=== PATIENT | female | born 1990 | race American Indian/Alaskan Native ===

== ENCOUNTER 2019-07-10 07:03 | Emergency (ER) | payer OTHER ==
--- NOTE | 2019-07-10 11:07 | Emergency Department Report ---
ED ENT HPI - General Chief complaint: Sore Throat Stated complaint: SORE THROAT COUGH SWEATING Time Seen by Provider: 07/10/19 09:04 Source: patient Mode of arrival: Ambulatory Limitations: No Limitations - History of Present Illness Initial comments: This is a 29-year-old female who presents to the emergency room with sore throat and cough for 4 days. Patient currently taking TheraFlu with minimal improvement of symptoms. Reports cough is nonproductive. States multiple family members with similar symptoms. Denies nausea, vomiting, diarrhea, myalgia, shortness of breath, chest pain, palpitations, or wheezing. MD complaint: sore throat Onset/Timin -: days(s) Location: throat Severity: moderate Severity scale (0 -10): 5 Quality: aching Consistency: intermittent Improves with: none Worsens with: swallowing, eating Associated Symptoms: cough, pain with swallowing, sore throat, rhinorrhea. denies: fever, discharge from ear - Related Data Previous Rx's Medication Instructions Recorded Last Taken Type Benzonatate [Tessalon Perles] 100 mg PO Q8HR PRN #30 capsule 07/10/19 Unknown Rx Fluticasone [Flonase] 1 spray NS QDAY #1 bottle 07/10/19 Unknown Rx methylPREDNISolone [Medrol 4MG 4 mg PO DAILY #1 tab.ds.pk 07/10/19 Unknown Rx DOSEPAK (21 tabs)] Allergies Allergy/AdvReac Type Severity Reaction Status Date / Time No Known Allergies Allergy Verified 07/10/19 07:07 ED Dental HPI - General Chief complaint: Sore Throat Stated complaint: SORE THROAT COUGH SWEATING Time Seen by Provider: 07/10/19 09:04 Source: patient Mode of arrival: Ambulatory Limitations: No Limitations - Related Data Previous Rx's Medication Instructions Recorded Last Taken Type Benzonatate [Tessalon Perles] 100 mg PO Q8HR PRN #30 capsule 07/10/19 Unknown Rx Fluticasone [Flonase] 1 spray NS QDAY #1 bottle 07/10/19 Unknown Rx methylPREDNISolone [Medrol 4MG 4 mg PO DAILY #1 tab.ds.pk 07/10/19 Unknown Rx DOSEPAK (21 tabs)] Allergies Allergy/AdvReac Type Severity Reaction Status Date / Time No Known Allergies Allergy Verified 07/10/19 07:07 ED Review of Systems ROS: Stated complaint: SORE THROAT COUGH SWEATING Other details as noted in HPI Constitutional: denies: chills, fever ENT: throat pain, congestion. denies: ear pain Respiratory: cough. denies: shortness of breath, wheezing Cardiovascular: denies: chest pain, palpitations Gastrointestinal: denies: abdominal pain, nausea, diarrhea Musculoskeletal: denies: back pain, joint swelling, arthralgia Skin: denies: rash, lesions Neurological: denies: headache, weakness, paresthesias Psychiatric: denies: anxiety, depression ED Past Medical Hx - Social History Smoking Status: Never Smoker - Medications Home Medications: Home Medications Medication Instructions Recorded Confirmed Last Taken Type Benzonatate [Tessalon Perles] 100 mg PO Q8HR PRN #30 capsule 07/10/19 Unknown Rx Fluticasone [Flonase] 1 spray NS QDAY #1 bottle 07/10/19 Unknown Rx methylPREDNISolone [Medrol 4MG 4 mg PO DAILY #1 tab.ds.pk 07/10/19 Unknown Rx DOSEPAK (21 tabs)] ED Physical Exam - General Limitations: No Limitations General appearance: alert, in no apparent distress, obese - ENT ENT exam: Present: mucous membranes moist, TM's normal bilaterally, normal external ear exam. Absent: normal orophraynx (erythematous and enlarged tonsils without exudate, uvula midline) - Neck Neck exam: Present: normal inspection - Respiratory Respiratory exam: Present: normal lung sounds bilaterally. Absent: respiratory distress - Cardiovascular Cardiovascular Exam: Present: regular rate, normal rhythm. Absent: systolic murmur, diastolic murmur, rubs, gallop - GI/Abdominal GI/Abdominal exam: Present: soft, normal bowel sounds. Absent: distended, tenderness, guarding, rebound, rigid - Neurological Exam Neurological exam: Present: alert, oriented X3, normal gait - Psychiatric Psychiatric exam: Present: normal affect, normal mood - Skin Skin exam: Present: warm, dry, intact, normal color. Absent: rash ED Course Vital Signs 07/10/19 07/10/19 08:10 08:16 Temperature 98.2 F Pulse Rate 68 Respiratory 20 16 Rate Blood Pressure 115/61 O2 Sat by Pulse 98 Oximetry ED Medical Decision Making - Lab Data Lab Results 07/10/19 Range/Units 09:10 Group A Strep Rapid Negative (Negative) - Medical Decision Making This is a 29 y.o. female that presents with sore throat and right ear pain for 5 days. No history of immunocompromise. Nontoxic appearance. Patient no trismus. No airway compromise. Able to tolerate by mouth. Rapid strep obtained and negative. VSS. 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 Start medrol dose pack, flonase, and Tessalon Perles. Discharge home with prompt outpatient PCP follow up. Return precautions discussed. Critical care attestation.: If time is entered above; I have spent that time in minutes in the direct care of this critically ill patient, excluding procedure time. ED Disposition Clinical Impression: Sore throat, Acute viral pharyngitis Disposition: TO HOME OR SELFCARE Is pt being admited?: No Condition: Stable Instructions: Pharyngitis (ED) Additional Instructions: Expect symptoms to improve within 3 or 4 days. There is no need for bed rest or isolation. Use Tylenol or ibuprofen for symptoms of sore throat, headache, and fever. Return to work in 24 hours of taking antibiotics. Follow up with Primary Care Provider in 48-72 hours. Prescriptions: Fluticasone [Flonase] 1 spray NS QDAY #1 bottle methylPREDNISolone [Medrol 4MG DOSEPAK (21 tabs)] 4 mg PO DAILY #1 tab.ds.pk Benzonatate [Tessalon Perles] 100 mg PO Q8HR PRN #30 capsule PRN Reason: Cough Referrals: [facility] [Outside] - 3-5 Days [facility] [Outside] - 3-5 Days [facility] [Outside] - 3-5 Days Forms: Work/School Release Form(ED) Time of Disposition: 11:08
[2019-07-10 11:31] VITALS: BP 130/55
== END 2019-07-10 11:31 | disposition home or self-care (01) ==
LOC: ED 07:03
DX: J02.9 Acute pharyngitis, unspecified (principal); Z79.899 Other long term (current) drug therapy
CPT/HCPCS: 87116; 87430